=== PATIENT | male | born 1965 | race American Indian/Alaskan Native ===

== ENCOUNTER → 2018-05-19 11:14 | Outpatient (CLI) | payer MEDICAID, OTHER, SELFPAY ==
--- NOTE | 2018-05-19 | DI.RAD.S_ITS ---
PROCEDURE: XR TOE LT MIN 2V INDICATIONS: PAIN IN LEFT GREAT TOE TECHNIQUE: 3 views of the first toe(s) acquired. COMPARISON: None. FINDINGS: Bones: No fractures or dislocations. No suspicious bony lesions. Mild degenerative disease is present at the first interphalangeal joint. Soft tissues: No suspicious soft tissue densities. IMPRESSION: Mild degenerative joint disease. Dictated by: Grecia Abdi M.D. on 05/19/2018 at 14:34 Approved by: Grecia Abdi M.D. on 05/19/2018 at 14:37
== END ==
PROVIDERS: Visit Provider Family Medicine
DX: M79.675 Pain in left toe(s) (principal); M19.072 Primary osteoarthritis, left ankle and foot
CPT/HCPCS: 73660

== ENCOUNTER 2018-05-22 18:42 | Emergency (ER) | payer MEDICAID, OTHER, SELFPAY ==
[2018-05-22 18:52] VITALS: BP 140/86; PULSE 110; RESP 14; TEMP 36.9; O2SAT 97; BMI 31.4
--- NOTE | 2018-05-22 20:06 | DI.RAD.S_ITS ---
PROCEDURE: XR FOOT LT MIN 3V INDICATIONS: pain status post trauma TECHNIQUE: 3 views of the foot were acquired. COMPARISON: [facility], CR, XR ANKLE LT MIN 3V, 05/22/2018, 20:09. FINDINGS: Bones: No fractures or dislocations. No suspicious bony lesions. Soft tissues: No tibiotalar joint effusion. Achilles tendon appears normal. IMPRESSION: 1. No fracture or dislocation. Dictated by: Raleigh Burroughs M.D. on 05/22/2018 at 20:36 Approved by: Raleigh Burroughs M.D. on 05/22/2018 at 20:37
--- NOTE | 2018-05-22 20:06 | DI.RAD.S_ITS ---
PROCEDURE: XR ANKLE LT MIN 3V INDICATIONS: pain lateral, dec rom TECHNIQUE: 3 views of the ankle were acquired. COMPARISON: [facility], CR, XR FOOT LT MIN 3V, 05/22/2018, 20:05. FINDINGS: Bones: No acute fractures or dislocations. Ankle mortise is normally aligned. No suspicious bony lesions. Soft tissues: No tibiotalar joint effusion. Achilles tendon appears intact. There is a small corticated ossicle inferior to the medial malleolus suggestive of a prior avulsion injury. IMPRESSION: 1. No acute fracture or dislocation. Dictated by: Raleigh Burroughs M.D. on 05/22/2018 at 20:38 Approved by: Raleigh Burroughs M.D. on 05/22/2018 at 20:39
[2018-05-22] MEDS: KETOROLAC 60 MG/2 ML VIAL IM (20:16)
[2018-05-22 21:27] VITALS: BP 110/71; PULSE 82; RESP 16; TEMP 36.2; O2SAT 96
--- NOTE | 2018-05-22 22:00 | ED.LOWEXIN ---
HPI - Extremity Injury (Lower) [facility] - Last Filed: 05/22/18 22:59> General Chief Complaint: Extremity Injury, Lower Stated Complaint: left foot/lwr leg, throbbing Time Seen by Provider: 05/22/18 19:46 Source: patient and family Mode of arrival: ambulatory Limitations: no limitations History of Present Illness HPI Narrative: Patient is a 53-year-old male nonsmoker who presents with his sister with a chief complaint of left foot and ankle pain. He was in a basketball injury last week, states he had a toe x-ray but never heard the results. He states that his pain is getting worse, decreased range of motion. He has taken occasional ibuprofen for the pain. He denies any other pain. He does complain of bruising. He has not had anything for pain since 8:00 a.m. this morning when he took ibuprofen. He states he is not exactly sure what happened during the basketball accident but he thinks he and another player kicked each other. He later felt a pop in his ankle. Related Data Previous Rx's Medication Instructions Recorded naproxen 500 mg PO BID PRN #20 tab 05/22/18 Allergies Allergy/AdvReac Type Severity Reaction Status Date / Time No Known Drug Allergies Allergy Verified 05/22/18 18:50 Review of Systems <SHERYL Brower - Last Filed: 05/22/18 22:59> Review of Systems GENERAL: Denies chills, fatigue, malaise, fever, sweats. HEENT: Denies sinus pain, ear pain, sore throat, difficulty swallowing, dizziness. RESPIRATORY: Denies dyspnea, cough, wheezing, hemoptysis, sputum. CARDIOVASCULAR: Denies chest pain, palpitations, orthopnea, edema, GASTROINTESTINAL: Denies nausea, vomiting, abdominal pain, diarrhea, constipation, melena. MUSCULOSKELETAL: see HPI SKIN: see HPI NEUROLOGIC: Denies weakness, headache, numbness, change in speech, confusion, seizures, incoordination. PSYCHIATRIC: No concerning psychosocial issues. 12 point review of systems is negative except for those stated above PFSH <SHERYL Brower - Last Filed: 05/22/18 22:59> Social History Smoking Status: Never smoker Social History Smoking Status: Never smoker Exam [facility] Last Filed: 05/22/18 22:59> Narrative Exam Narrative: GENERAL: This is a well-nourished, well-developed patient, With family at bedside HEAD: Atraumatic. Normocephalic. No temporal or scalp tenderness. EYES: Pupils equal round and reactive. Extraocular motions intact. No scleral icterus. No injection or drainage. ENT: Nose without bleeding, purulent drainage or septal hematoma. Throat without erythema, tonsillar hypertrophy or exudate. Uvula midline. Airway patent. NECK: Trachea midline. No JVD or lymphadenopathy. Supple, nontender, no meningeal signs. CARDIOVASCULAR: Regular rate and rhythm RESPIRATORY: no cough. no ncreased respiratory effort. EXTREMITIES: generalized pain to palpation left foot left ankle. Decreased range of motion left ankle all fernandez. Positive pedal pulses left foot. Capillary refill less than 2 sec all toes left foot. decreased flexion and extension of right ankle. Achilles is intact. Slight swelling lateral malleolus left ankle. BACK: Nontender without deformity or crepitance. No flank tenderness. NEURO: AOx3. SKIN: ecchymosis noted over top of left foot At the base of toes. No abrasion laceration or avulsion noted. Nails are intact. Initial Vital Signs Initial Vital Signs: Vital Signs Temperature 98.5 F 05/22/18 18:52 Pulse Rate 110 H 05/22/18 18:52 Respiratory Rate 14 05/22/18 18:52 Blood Pressure 140/86 05/22/18 18:52 Pulse Oximetry 97 05/22/18 18:52 <Tony Alegria MD - Last Filed: 05/23/18 05:45> Initial Vital Signs Initial Vital Signs: Vital Signs Temperature 98.5 F 05/22/18 18:52 Pulse Rate 110 H 05/22/18 18:52 Respiratory Rate 14 05/22/18 18:52 Blood Pressure 140/86 05/22/18 18:52 Pulse Oximetry 97 05/22/18 18:52 Course <SHERYL BrowerBC - Last Filed: 05/22/18 22:59> Orders Ordered: Discontinued Medications Ketorolac Tromethamine (Toradol) 60 mg IM NOW ONE Stop: 05/22/18 20:02 Last Admin: 05/22/18 20:16 Dose: 60 mg Vital Signs - 8 hr 05/22/18 22:30 Pulse Rate 84 Respiratory Rate 16 Blood Pressure 125/86 Pulse Oximetry 97 <Tony Alegria MD - Last Filed: 05/23/18 05:45> Orders Ordered: Discontinued Medications Ketorolac Tromethamine (Toradol) 60 mg IM NOW ONE Stop: 05/22/18 20:02 Last Admin: 05/22/18 20:16 Dose: 60 mg Vital Signs - 8 hr 05/22/18 22:30 Pulse Rate 84 Respiratory Rate 16 Blood Pressure 125/86 Pulse Oximetry 97 [facility] - Extremity Injury (Lower) <PERLA Brower - Last Filed: 05/22/18 22:59> Imaging Data foot xray: Radiologist's impression: Leonardo Kohli Amari Lopez M 1965 [address] [address] XRay Report Signed Patient: Leonardo Kohli JMR#: [id number] : 1965Acct:[id number] Age/Sex: 53 / MDate of Service: 05/22/18 Loc: ED Accession Number: [id number] Procedure: XR foot LT min 3V Ordering Provider: Irina Mayers PROCEDURE: XR FOOT LT MIN 3V INDICATIONS: pain status post trauma TECHNIQUE: 3 views of the foot were acquired. COMPARISON: [facility], , XR ANKLE LT MIN 3V, 05/22/2018, 20:09. FINDINGS: Bones: No fractures or dislocations. No suspicious bony lesions. Soft tissues: No tibiotalar joint effusion. Achilles tendon appears normal. IMPRESSION: 1. No fracture or dislocation. Dictated by: Raleigh Burroughs M.D. on 05/22/2018 at 20:36 Approved by: Raleigh Burroughs M.D. on 05/22/2018 at 20:37 ankle xray : Radiologist's impression: Report states no acute fracture or dislocation. [facility] Narrative Medical decision making narrative: Patient is a 53-year-old male who presents with chief complaint of left foot and ankle pain and inability to ambulate. He states he hurt his ankle and foot last week playing basketball. X-ray illustrate no fractures. He is given Toradol in the emergency department. After the cecum stated his pain was much improved and was able to put weight on his foot. I discussed at length rest ice compression elevation, as well as the use of anti-inflammatories. I encouraged him to follow up with primary care provider if worsening or no improvement. The patient expressed gratitude has no questions or concerns upon discharge. I discussed at length Not using NSAIDs in addition to naproxen. Discharge Plan Departure Patient Disposition: Home Clinical Impression: Ankle pain Qualifiers: Chronicity: acute Laterality: left Qualified Code(s): M25.572 - Pain in left ankle and joints of left foot Foot pain Qualifiers: Laterality: left Qualified Code(s): M79.672 - Pain in left foot Discharge Date/Time: 05/22/18 22:31 Interventions: ED Discharge Assessment Last Done: 05/22/18 22:30 Instructions: How To Perform RICE (Rest, Ice, Compress, Elevate), DI for Ankle Pain, DI for Foot Pain Activity Restrictions/Additional Instructions: Your ft x-rays and ankle x-rays came back normal today. Given your pain, we have placed you in an air splint and given crutches. I am giving a prescription for prescription strength anti-inflammatories. Do not combine with ibuprofen, Aleve or other NSAIDs. Please follow up with primary care provider in a few days for recheck and further workup If needed. Please use rest ice compression elevation. Come back to emergency department for any acute concerns. Prescriptions: New naproxen 500 mg tablet 500 mg PO BID PRN (Reason: pain) Qty: 20 RF: 0 Referrals: Jamar Knapp MD [Non-Staff] - <Tony Alegria MD - Last Filed: 05/23/18 05:45> Cosign ED Attending Kadeature Attestation: I was working in the ER at the time of this patient's evaluation. I was available for verbal consult or to see the patient directly if needed. I agree with the patient's assessment and treatment plan.
--- NOTE | 2018-05-22 22:18 | ED_ITS ---
HPI - Extremity Injury (Lower) <SHERYL Brower - Last Filed: 05/22/18 22:59> General Chief Complaint: Extremity Injury, Lower Stated Complaint: left foot/lwr leg, throbbing Time Seen by Provider: 05/22/18 19:46 Source: patient and family Mode of arrival: ambulatory Limitations: no limitations History of Present Illness HPI Narrative: Patient is a 53-year-old male nonsmoker who presents with his sister with a chief complaint of left foot and ankle pain. He was in a basketball injury last week, states he had a toe x-ray but never heard the results. He states that his pain is getting worse, decreased range of motion. He has taken occasional ibuprofen for the pain. He denies any other pain. He does complain of bruising. He has not had anything for pain since 8:00 a.m. t his morning when he took ibuprofen. He states he is not exactly sure what happened during the basketball accident but he thinks he and another player kicked each other. He later felt a pop in his ankle. Related Data Previous Rx's Medication Instructions Recorded naproxen 500 mg PO BID PRN #20 tab 05/22/18 Allergies Allergy/AdvReac Type Severity Reaction Status Date / Time No Known Drug Allergies Allergy Verified 05/22/18 18:50 Review of Systems <SHERYL Brower - Last Filed: 05/22/18 22:59> Review of Systems GENERAL: Denies chills, fatigue, malaise, fever, sweats. HEENT: Denies sinus pain, ear pain, sore throat, difficulty swallowing, dizziness. RESPIRATORY: Denies dyspnea, cough, wheezing, hemoptysis, sputum. CARDIOVASCULAR: Denies chest pain, palpitations, orthopnea, edema, GASTROINTESTINAL: Denies nausea, vomiting, abdominal pain, diarrhea, constipation, melena. MUSCULOSKELETAL: see HPI SKIN: see HPI NEUROLOGIC: Denies weakness, headache, numbness, change in speech, confusion, seizures, incoordination. PSYCHIATRIC: No concerning psychosocial issues. 12 point review of systems is negative except for those stated above PFSH <SHERYL Brower - Last Filed: 05/22/18 22:59> Social History Smoking Status: Never smoker Social History Smoking Status: Never smoker [facility] Last Filed: 05/22/18 22:59> Narrative Exam Narrative: GENERAL: This is a well-nourished, well-developed patient, With family at bedside HEAD: Atraumatic. Normocephalic. No temporal or scalp tenderness. EYES: Pupils equal round and reactive. Extraocular motions intact. No scleral icterus. No injection or drainage. ENT: Nose without bleeding, purulent drainage or septal hematoma. Throat without erythema, tonsillar hypertrophy or exudate. Uvula midline. Airway patent. NECK: Trachea midline. No JVD or lymphadenopathy. Supple, nontender, no meningeal signs. CARDIOVASCULAR: Regular rate and rhythm RESPIRATORY: no cough. no ncreased respiratory effort. EXTREMITIES: generalized pain to palpation left foot left ankle. Decreased range of motion left ankle all fernandez. Positive pedal pulses left foot. Capillary refill less than 2 sec all toes left foot. decreased flexion and extension of right ankle. Achilles is intact. Slight swelling lateral malleolus left ankle. BACK: Nontender without deformity or crepitance. No flank tenderness. NEURO: AOx3. SKIN: ecchymosis noted over top of left foot At the base of toes. No abrasion laceration or avulsion noted. Nails are intact. Initial Vital Signs Initial Vital Signs: Vital Signs Temperature 98.5 F 05/22/18 18:52 Pulse Rate 110 H 05/22/18 18:52 Respiratory Rate 14 05/22/18 18:52 Blood Pressure 140/86 05/22/18 18:52 Pulse Oximetry 97 05/22/18 18:52 <Tony Alegria MD - Last Filed: 05/23/18 05:45> Initial Vital Signs Initial Vital Signs: Vital Signs Temperature 98.5 F 05/22/18 18:52 Pulse Rate 110 H 05/22/18 18:52 Respiratory Rate 14 05/22/18 18:52 Blood Pressure 140/86 05/22/18 18:52 Pulse Oximetry 97 05/22/18 18:52 Course <CORNELIO Brower-BC - Last Filed: 05/22/18 22:59> Orders Ordered: Discontinued Medications Ketorolac Tromethamine (Toradol) 60 mg IM NOW ONE Stop: 05/22/18 20:02 Last Admin: 05/22/18 20:16 Dose: 60 mg Vital Signs - 8 hr 05/22/18 22:30 Pulse Rate 84 Respiratory Rate 16 Blood Pressure 125/86 Pulse Oximetry 97 <Tony Alegria MD - Last Filed: 05/23/18 05:45> Orders Ordered: Discontinued Medications Ketorolac Tromethamine (Toradol) 60 mg IM NOW ONE Stop: 05/22/18 20:02 Last Admin: 05/22/18 20:16 Dose: 60 mg Vital Signs - 8 hr 05/22/18 22:30 Pulse Rate 84 Respiratory Rate 16 Blood Pressure 125/86 Pulse Oximetry 97 [facility] - Extremity Injury (Lower) <PERLA Brower - Last Filed: 05/22/18 22:59> Imaging Data foot xray: Radiologist's impression: Leonardo Kohli Amari Lopez M [address] [address] XRay Report Signed Patient: Leonardo Kohli JMR#: [id number] : 1965Acct:[id number] Age/Sex: 53 / MDate of Service: 05/22/18 Loc: ED Accession Number: [id number] Procedure: XR foot LT min 3V Ordering Provider: Irina Mayers PROCEDURE: XR FOOT LT MIN 3V INDICATIONS: pain status post trauma TECHNIQUE: 3 views of the foot were acquired. COMPARISON: [facility], , XR ANKLE LT MIN 3V, 05/22/2018, 20:09. FINDINGS: Bones: No fractures or dislocations. No suspicious bony lesions. Soft tissues: No tibiotalar joint effusion. Achilles tendon appears normal. IMPRESSION: 1. No fracture or dislocation. Dictated by: Raleigh Burroughs M.D. on 05/22/2018 at 20:36 Approved by: Raleigh Burroughs M.D. on 05/22/2018 at 20:37 ankle xray : Radiologist's impression: Report states no acute fracture or dislocation. [facility] Narrative Medical decision making narrative: Patient is a 53-year-old male who presents with chief complaint of left foot and ankle pain and inability to ambulate. He states he hurt his ankle and foot last week playing basketball. X-ray illustrate no fractures. He is given Toradol in the emergency department. After the cecum stated his pain was much improved and was able to put weight on his foot. I discussed at length rest ice compression elevation, as well as the use of anti-inflammatories. I encouraged him to follow up with primary care provider if worsening or no improvement. The patient expressed gratitude has no questions or concerns upon discharge. I discussed at length Not using NSAIDs in addition to naproxen. Discharge Plan Departure Patient Disposition: Home Clinical Impression: Ankle pain Qualifiers: Chronicity: acute Laterality: left Qualified Code(s): M25.572 - Pain in left ankle and joints of left foot Foot pain Qualifiers: Laterality: left Qualified Code(s): M79.672 - Pain in left foot Discharge Date/Time: 05/22/18 22:31 Interventions: ED Discharge Assessment Last Done: 05/22/18 22:30 Instructions: How To Perform RICE (Rest, Ice, Compress, Elevate), DI for Ankle Pain, DI for Foot Pain Activity Restrictions/Additional Instructions: Your ft x-rays and ankle x-rays came back normal today. Given your pain, we have placed you in an air splint and given crutches. I am giving a prescription for prescription strength anti-inflammatories. Do not combine with ibuprofen, Aleve or other NSAIDs. Please follow up with primary care provider in a few days for recheck and further workup If needed. Please use rest ice compression elevation. Come back to emergency department for any acute concerns. Prescriptions: New naproxen 500 mg tablet 500 mg PO BID PRN (Reason: pain) Qty: 20 RF: 0 Referrals: Jamar Knapp MD [Non-Staff] - <Tony Alegria MD - Last Filed: 05/23/18 05:45> Cosign ED Attending Kadeature Attestation: I was working in the ER at the time of this patient's evaluation. I was available for verbal consult or to see the patient directly if needed. I agree with the patient's assessment and treatment plan.
[2018-05-22 22:30] VITALS: BP 125/86; PULSE 84; RESP 16; O2SAT 97
== END 2018-05-22 22:31 | disposition home or self-care (01) ==
PROVIDERS: Emergency Provider Nurse Practitioner Family
DX: M25.572 Pain in left ankle and joints of left foot (principal); M79.672 Pain in left foot; Y93.67 Activity, basketball
CPT/HCPCS: 29540; 73610; 73630; 96372; 99282; 99283; J1885

== ENCOUNTER 2018-07-22 09:12 | Emergency (ER) | payer MEDICAID, OTHER, SELFPAY ==
[2018-07-22 09:25] VITALS: BP 138/94; PULSE 117; RESP 12; TEMP 36.6; O2SAT 97
--- NOTE | 2018-07-22 09:37 | ED.ABDPAIN ---
HPI - Abdominal Pain General Chief Complaint: Abdominal Pain Stated Complaint: feels flu x4 days Time Seen by Provider: 07/22/18 09:27 Source: patient, family () and other (PCP, Dr. Ramos) Mode of arrival: ambulatory Limitations: no limitations History of Present Illness HPI narrative: This is a 53-year-old male who is sent from his primary care office by Dr. Otto. Patient comes in with 4 day history of nausea with no vomiting, diarrhea that is been almost hourly at times. Patient states that any time he tries to eat or drink anything he will feel nauseated but he has not been vomiting. He has not been eating or drinking very much at all. Abdominal pain just started today. He states in the lower abdomen on both sides. He has been having diarrhea gets regularly for about 4 days. He has not had any fevers that he is aware of. He has not had any black or bloody stools that he is aware of. He has only been having very small amounts of urine output. Patient states he does not feel like he needs to urinate. He has not had similar symptoms in the past except when he had his gallbladder out. He has had a cholecystectomy as well as appendectomy and tonsillectomy. He is not taking any medications but per his physician has some hypertension and dyslipidemia as well as some hearing loss. Per his physician he also had mild transaminase elevations and had a negative hepatitis C in 2017. She was concerned as his pressure was normal but he was tachycardic in the office. They did do EKG and shy Q 3 as well as possibly some ST depression V2 3. Patient denies any chest pain, shortness of breath. he has not had any sick contacts. Patient drinks about 12 beers weekly denies any illicit Related Data Previous Rx's Medication Instructions Recorded nitazoxanide 500 mg PO BID 3 Days #6 tab 07/22/18 ondansetron HCl [Zofran] 4 mg PO Q6-8H PRN #7 tab 07/22/18 tramadol [Ultram] 50 mg PO BEDTIME #7 tab 07/22/18 Allergies Allergy/AdvReac Type Severity Reaction Status Date / Time No Known Drug Allergies Allergy Verified 05/22/18 18:50 Review of Systems Review of Systems ROS Unobtainable: All systems reviewed & are unremarkable except as noted in HPI and below Constitutional Denies chills, Denies fever(s), Denies lethargy and Denies weakness ENT Ears, Nose, Mouth, and Throat: Reports dry mouth and Denies nasal congestion Cardiovascular Denies chest pain, Denies syncope, Denies edema, Denies lightheadedness and Denies dyspnea Respiratory Denies chest congestion, Denies cough, Denies excessive phlegm production and Denies dyspnea Gastrointestinal Gastrointestinal: Reports abdominal pain (Lower abdomen), Denies melena, Denies hematochezia, Denies change in bowel habits, Reports diarrhea, Reports nausea and Denies vomiting Genitourinary Reports as per HPI, Denies difficulty urinating, Denies urinary frequency, Denies urinary hesitancy, Denies urinary incontinence and Reports other (Decreased urine output) Musculoskeletal Reports back pain (Lower back pain) Integumentary/Breasts Denies rash Neurologic Denies syncope and Denies weakness PFSH Medical History (Updated 07/22/18 @ 14:14 by Irina Kat DO) Dyslipidemia (Chronic) Hypertension (Chronic) Surgical History (Updated 07/22/18 @ 09:41 by Irina Kat DO) History of tonsillectomy (Chronic) Hx of appendectomy (Chronic) Hx of cholecystectomy (Chronic) Social History (Updated 07/22/18 @ 09:41 by Irina Kat DO) marital status: Smoking Status: Never smoker alcohol intake: current substance use type: does not use Social History (Updated 07/22/18 @ 09:41 by Irina Kat DO) marital status: Smoking Status: Never smoker alcohol intake: current substance use type: does not use Exam Narrative Exam Narrative: GENERAL: Alert and oriented x three, well-nourished, well-appearing male in mild distress. HEENT: Head normocephalic, atraumatic, EOMI, pupils reactive, face symmetric, dry mucous membranes NECK: Supple, full range of motion CARDIOVASCULAR: Tachycardic but regular rhythm without murmurs, rubs or gallops. No JVD. No edema bilateral lower extremities. RESPIRATORY: Breath sounds equal bilaterally, no wheezes rales or rhonchi. No tachypnea or accessory muscle use. ABDOMEN: Soft, mildly tender suprapubically. Hypoactive bowel sounds all 4 quadrants. No guarding or rebound, rigidity, no mass : No CVA tenderness EXTREMITIES: Normal range of motion, no clubbing or edema. Neurovascularly intact NEUROLOGICAL: Cranial nerves II through XII grossly intact. Moving all extremities SKIN: Warm, dry, no petechiae, no rashes or lesions. Initial Vital Signs Initial Vital Signs: Vital Signs Temperature 97.8 F 07/22/18 09:25 Pulse Rate 117 H 07/22/18 09:25 Respiratory Rate 12 07/22/18 09:25 Blood Pressure 138/94 H 07/22/18 09:25 Pulse Oximetry 97 07/22/18 09:25 Course Orders Ordered: ED Orders 07/22/18 12:13 Urine Microscopic Stat Discontinued Medications Sodium Chloride (Normal Saline 0.9%) 3,007.32 mls @ 1,002.44 mls/hr 30 ml/kg infuse over 3 hr (3007.32 ml) IV NOW ONE Stop: 07/22/18 13:00 Last Infusion: 07/22/18 14:03 Dose: 0 mls/hr Admin: 07/22/18 10:10 Dose: 1,002.44 mls/hr Ondansetron HCl (Zofran) 4 mg IV NOW ONE Stop: 07/22/18 09:44 Last Admin: 07/22/18 10:01 Dose: 4 mg Vital Signs - 8 hr 07/22/18 12:30 07/22/18 13:01 Pulse Rate 109 H 100 H Respiratory Rate 10 L 15 Blood Pressure [Right Arm] 136/87 146/90 H Pulse Oximetry 99 99 MDM - Abdominal Pain Lab Data Attestation: I reviewed the patient's lab results. Result diagrams: 07/22/18 09:40 07/22/18 09:40 Lab Results 07/22/18 07/22/18 07/22/18 Range/Units 09:40 09:40 09:40 WBC 9.5 (4.5-11.0) X10^3/uL RBC 5.90 (4.5-5.9) X10^6/uL Hgb 19.1 H (13.5-17.5) g/dL Hct 55.4 H (41-53) % MCV 94.0 (80-100) fL MCH 32.5 (26-34) PG MCHC 34.5 (30-36) % RDW 13.4 (11.6-14.8) % Plt Count 328 (150-400) X10^3/uL Neut % (Auto) 70.9 (50-75) % Lymph % (Auto) 14.1 L (25-40) % [place] % (Auto) 12.1 (3-14) % Eos % (Auto) 2.4 (2-4) % Baso % (Auto) 0.5 (0-2) % Neut # (Auto) 6700 (0930-6246) /uL Lymph # (Auto) 1300 (5241-4282) /uL [place] # (Auto) 1100 H (0-900) /uL Eos # (Auto) 200 (0-450) /uL Baso # (Auto) 0 (0-100) /uL Plt Morphology Comment . RBC Morphology Normal morphology Sodium 138 (137-145) mmol/L Potassium 3.6 (3.4-5.1) mmol/L Chloride 107 (98-107) mmol/L Carbon Dioxide 17 L (22-32) mmol/L BUN 23 H (9-20) mg/dL Creatinine 1.20 (0.66-1.25) mg/dL Estimated GFR > 60.0 (>60) mL/min BUN/Creatinine Ratio 19.2 (6-22) Glucose 121 H (70-100) mg/dL Lactate 0.9 (0.7-2.1) mmol/L Calcium 8.9 (8.4-10.2) mg/dL Total Bilirubin 0.8 (0.2-1.3) mg/dL AST 65 H (17-59) IU/L ALT 87 H (21-72) IU/L Alkaline Phosphatase 95 (38-126) U/L Total Protein 8.0 (6.3-8.2) g/dL Albumin 4.6 (3.5-5.0) g/dL Globulin 3.4 (1.7-4.1) g/dL Albumin/Globulin Ratio 1.4 (1.0-2.8) Lipase 273 (23-300) U/L Urine Color Urine Appearance Urine pH Ur Specific [place] Urine Protein Urine Glucose (UA) Urine Ketones Urine Occult Blood Urine Nitrate Urine Bilirubin Urine Urobilinogen Ur Leukocyte Esterase Urine RBC (0-5/HPF) Urine WBC (0-5/HPF) Urine Bacteria (None) Ur Culture Indicated? Stl C. cayetanensis PCR (Not Detect) Stool Rotavirus (PCR) (Not Detect) Stool Adenovirus (PCR) (Not Detect) Stool Astrovirus (PCR) (Not Detect) Stool Cryptosporidium PCR (Not Detect) Stl E.coli Shiga Tox PCR (Not Detect) St Sh/Enteroin Ecoli PCR (Not Detect) Stool E coli O157 PCR Stl Enterotoxigenic E PCR (Not Detect) Stool EPEC (PCR) (Not Detect) Stl E. histolytica PCR (Not Detect) Stool Giardia Lamblia PCR (Not Detect) Stool Sapovirus (PCR) (Not Detect) Stl P. shigelloides PCR (Not Detect) St Y.enterocolitica PCR (Not Detect) Stool Vibrio (PCR) (Not Detect) Stl Vibrio cholerae PCR (Not Detect) Stl Enteroaggr Ecoli PCR (Not Detect) Stl Norovirus GI/GII PCR (Not Detect) Campylobacter (PCR) (Not Detect) C. difficile Tox (PCR) (Not Detect) Salmonella (PCR) (Not Detect) 07/22/18 07/22/18 Range/Units 11:08 12:13 WBC (4.5-11.0) X10^3/uL RBC (4.5-5.9) X10^6/uL Hgb (13.5-17.5) g/dL Hct (41-53) % MCV (80-100) fL MCH (26-34) PG MCHC (30-36) % RDW (11.6-14.8) % Plt Count (150-400) X10^3/uL Neut % (Auto) (50-75) % Lymph % (Auto) (25-40) % [place] % (Auto) (3-14) % Eos % (Auto) (2-4) % Baso % (Auto) (0-2) % Neut # (Auto) (7991-5025) /uL Lymph # (Auto) (5622-4364) /uL [place] # (Auto) (0-900) /uL Eos # (Auto) (0-450) /uL Baso # (Auto) (0-100) /uL Plt Morphology Comment RBC Morphology Sodium (137-145) mmol/L Potassium (3.4-5.1) mmol/L Chloride (98-107) mmol/L Carbon Dioxide (22-32) mmol/L BUN (9-20) mg/dL Creatinine (0.66-1.25) mg/dL Estimated GFR (>60) mL/min BUN/Creatinine Ratio (6-22) Glucose (70-100) mg/dL Lactate (0.7-2.1) mmol/L Calcium (8.4-10.2) mg/dL Total Bilirubin (0.2-1.3) mg/dL AST (17-59) IU/L ALT (21-72) IU/L Alkaline Phosphatase (38-126) U/L Total Protein (6.3-8.2) g/dL Albumin (3.5-5.0) g/dL Globulin (1.7-4.1) g/dL Albumin/Globulin Ratio (1.0-2.8) Lipase (23-300) U/L Urine Color Cancelled Urine Appearance Cancelled Urine pH Cancelled Ur Specific [place] Cancelled Urine Protein Cancelled Urine Glucose (UA) Cancelled Urine Ketones Cancelled Urine Occult Blood Cancelled Urine Nitrate Cancelled Urine Bilirubin Cancelled Urine Urobilinogen Cancelled Ur Leukocyte Esterase Cancelled Urine RBC None seen (0-5/HPF) Urine WBC 0-1/hpf (0-5/HPF) Urine Bacteria Occasional (0-1) (None) Ur Culture Indicated? Cult not indicated Stl C. cayetanensis PCR Not detected (Not Detect) Stool Rotavirus (PCR) Not detected (Not Detect) Stool Adenovirus (PCR) Not detected (Not Detect) Stool Astrovirus (PCR) Not detected (Not Detect) Stool Cryptosporidium PCR Detected H (Not Detect) Stl E.coli Shiga Tox PCR Not detected (Not Detect) St Sh/Enteroin Ecoli PCR Not detected (Not Detect) Stool E coli O157 PCR TNP Stl Enterotoxigenic E PCR Not detected (Not Detect) Stool EPEC (PCR) Not detected (Not Detect) Stl E. histolytica PCR Not detected (Not Detect) Stool Giardia Lamblia PCR Not detected (Not Detect) Stool Sapovirus (PCR) Not detected (Not Detect) Stl P. shigelloides PCR Not detected (Not Detect) St Y.enterocolitica PCR Not detected (Not Detect) Stool Vibrio (PCR) Not detected (Not Detect) Stl Vibrio cholerae PCR Not detected (Not Detect) Stl Enteroaggr Ecoli PCR Not detected (Not Detect) Stl Norovirus GI/GII PCR Not detected (Not Detect) Campylobacter (PCR) Not detected (Not Detect) C. difficile Tox (PCR) Not detected (Not Detect) Salmonella (PCR) Not detected (Not Detect) Point of care testing: Urine Dip Bedside Urine Glucose Negative Bedside Urine Bilirubin - Negative Bedside Urine Ketone - Negative Urine Specific [place] 1.005 Bedside Urine Occult Blood - Negative Bedside Urine pH 5.5 Bedside Urine Protein + 30 Bedside Urine Urobilinogen - Negative Bedside Urine Nitrite - Negative Bedside Urine Leukocytes - Negative Esterase Imaging Data CT scan - abdomen: Radiologist's impression: 64 Irina Kat, DO Find Patient Imaging Leonardo Kohli 53 M 1965 ACTIVITY DATE EXAM STATUS AUTHOR 07/22/18 10:12 [place] [address] CT Scan Report Signed Patient: Leonardo Kohli R#: [id number] : 1965Acct:[id number] Age/Sex: 53 / MDate of Service: 07/22/18 Loc: ED Accession Number: [id number] Procedure: CT abdomen pelvis w con Ordering Provider: Irina Kat D.O. PROCEDURE: CT ABDOMEN PELVIS W CON INDICATIONS: diarrhea x 4 days, decreased urine output, lower abd pain TECHNIQUE: After the administration of intravenous contrast, 5 mm thick sections acquired from the diaphragm to the symphysis. 5 mm coronal and sagittal reformats were acquired. For radiation dose reduction, the following was used: automated exposure control, adjustment of mA and/or kV according to patient size. COMPARISON: None. FINDINGS: Image quality: Excellent. ABDOMEN: Lung bases: Lung bases are clear. Heart size is normal. Solid organs: Liver is normal in size and enhancement. Gallbladder has been previously resected. Biliary system is non dilated. Pancreas enhances normally. Spleen is normal in size and enhancement. No adrenal nodules. Kidneys demonstrate normal size and enhancement, without hydronephrosis. Peritoneum and bowel: Bowel loops demonstrate normal wall thickness and caliber. No free fluid or air. Nodes and vessels: No retroperitoneal or mesenteric adenopathy by size criteria. Aorta and inferior vena cava are normal in size. Miscellaneous: No ventral hernias. PELVIS: Genitourinary: Bladder wall thickness is normal. Miscellaneous: No inguinal hernias or adenopathy. A normal or abnormal appendix is not seen but the patient did report to the technologist that the appendix has been removed. Bones: No suspicious bony lesions. No vertebral body compression fractures. IMPRESSION: Source of persistent diarrhea and abdominal pain is not seen. The patient appears free of colitis. Prior cholecystectomy and reported prior appendectomy. Dictated by: Erlin Mills M.D. on 07/22/2018 at 11:35 Approved by: Erlin Mills M.D. on 07/22/2018 at 11:36 ECG Data Attestation: I personally reviewed and interpreted this ECG as follows: Interpretation: Sinus tachycardia with a rate of 119, MS interval 136 QRS 81 and QTC of 3 4. Patient does have a Q-wave in lead 3, possibly some mild ST depression in V4 through 6. MDM Narrative Medical decision making narrative: Patient did received a 30 cc/kilos bolus over 3 hours which was almost 3 entire L. Patient's heart rate did improve. His lab work is surprisingly normal except for his stool which shows Cryptosporidium. Her lab they ran it 3 times and it was positive each time. Spoke with patient he is feeling a little bit better he is able to eat and drink has just been choosing not to because he felt nauseated. We discussed doing some Zofran orally hydrating at home, doing some medication for pain in the evening when he feels most uncomfortable and starting medication for the diarrhea. Discussed that he does need some follow-up this is not a common cause of infection and he may need some additional testing from his physician to evaluate for why he developed this. Patient is comfortable with this plan we did discuss that if he feels worse over the weekend he should immediately return. Patient and I discussed at length and him and his were comfortable with this plan. Discharge Plan Departure Patient Disposition: Home Clinical Impression: Cryptosporidial gastroenteritis Discharge Date/Time: 07/22/18 14:32 Interventions: ED Discharge Assessment Last Done: 07/22/18 14:32 Instructions: Cryptosporidiosis Activity Restrictions/Additional Instructions: Follow-up with your primary care physician on Wednesday for recheck, to make sure her symptoms are improving and any additional testing as needed. Take medication as prescribed until gone. Diarrhea often takes up to 5 days to resolve with treatment in 80% of cases. Take Zofran 1 tablet every 6 hours under the tongue as needed for nausea. Take pain medication as prescribed this medication can make you sleepy do not drive, perform has activities or make any major decisions while taking it. Make sure to drink plenty of fluids to help you stay hydrated. Return to the emergency department for persistent fevers, worsening symptoms, black or bloody stools, inability eat or drink anything, persistent vomiting, decreasing urine output, passing out, chest pain, no abdominal pain or other new or concerning symptoms. Prescriptions: New nitazoxanide 500 mg tablet 500 mg PO BID 3 Days Qty: 6 RF: 0 ondansetron HCl [Zofran] 4 mg tablet 4 mg PO Q6-8H PRN (Reason: nausea and vomiting) Qty: 7 RF: 0 tramadol [Ultram] 50 mg tablet 50 mg PO BEDTIME Qty: 7 RF: 0 Referrals: Suyapa Ramos MD [Non-Staff] -
[2018-07-22 09:56] LABS: Basophils Absolute Auto 0 /uL (0-100); Basophils Percent Auto 0.5 % (0-2); Eosinophils Absolute Auto 200 /uL (0-450); Eosinophils Percent Auto 2.4 % (2-4); Hematocrit 55.4 % (41-53); Hemoglobin 19.1 g/dL (13.5-17.5); Lymphocytes Absolute Auto 1300 /uL (1100-4500); Lymphocytes Percent Auto 14.1 % (25-40); Mean Corpuscular HGB Conc 34.5 % (30-36); Mean Corpuscular Hemoglobin 32.5 PG (26-34); Monocytes Absolute Auto 1100 /uL (0-900); Monocytes Percent Auto 12.1 % (3-14); Neutrophils Absolute Auto 6700 /uL (1500-7000); Neutrophils Percent Auto 70.9 % (50-75); Platelet Count 328 X10^3/uL (150-400); Red Cell Distribution Width 13.4 % (11.6-14.8); White Blood Cell Count 9.5 X10^3/uL (4.5-11.0)
[2018-07-22] MEDS: ONDANSETRON 4 MG/2 ML INJ IV (10:01)
[2018-07-22 10:02] LABS: Alanine Aminotransferase 87 IU/L (21-72); Albumin 4.6 g/dL (3.5-5.0); Albumin Globulin Ratio 1.4 (1.0-2.8); Alkaline Phosphatase 95 U/L (38-126); Aspartate Aminotransferase 65 IU/L (17-59); BUN Creatinine Ratio 19.2 (6-22); Bilirubin Total 0.8 mg/dL (0.2-1.3); Blood Urea Nitrogen 23 mg/dL (9-20); Calcium 8.9 mg/dL (8.4-10.2); Carbon Dioxide 17 mmol/L (22-32); Chloride 107 mmol/L (98-107); Estimated Glomerular Filt Rate > 60.0 mL/min (>60); Globulin 3.4 g/dL (1.7-4.1); Glucose 121 mg/dL (70-100); HEMOLYSIS 16 (0-50); Lactate (Lactic Acid) 0.9 mmol/L (0.7-2.1); Lipase 273 U/L (23-300); Potassium 3.6 mmol/L (3.4-5.1); Sodium 138 mmol/L (137-145)
[2018-07-22 10:05] LABS: Add Manual Diff / Slide Review SLIDE REVIEW
[2018-07-22] MEDS: SODIUM CHLORIDE 0.9% 1002.44 ML IV (10:10)
--- NOTE | 2018-07-22 10:12 | DI.CT.S_ITS ---
PROCEDURE: CT ABDOMEN PELVIS W CON INDICATIONS: diarrhea x 4 days, decreased urine output, lower abd pain TECHNIQUE: After the administration of intravenous contrast, 5 mm thick sections acquired from the diaphragm to the symphysis. 5 mm coronal and sagittal reformats were acquired. For radiation dose reduction, the following was used: automated exposure control, adjustment of mA and/or kV according to patient size. COMPARISON: None. FINDINGS: Image quality: Excellent. ABDOMEN: Lung bases: Lung bases are clear. Heart size is normal. Solid organs: Liver is normal in size and enhancement. Gallbladder has been previously resected. Biliary system is non dilated. Pancreas enhances normally. Spleen is normal in size and enhancement. No adrenal nodules. Kidneys demonstrate normal size and enhancement, without hydronephrosis. Peritoneum and bowel: Bowel loops demonstrate normal wall thickness and caliber. No free fluid or air. Nodes and vessels: No retroperitoneal or mesenteric adenopathy by size criteria. Aorta and inferior vena cava are normal in size. Miscellaneous: No ventral hernias. PELVIS: Genitourinary: Bladder wall thickness is normal. Miscellaneous: No inguinal hernias or adenopathy. A normal or abnormal appendix is not seen but the patient did report to the technologist that the appendix has been removed. Bones: No suspicious bony lesions. No vertebral body compression fractures. IMPRESSION: Source of persistent diarrhea and abdominal pain is not seen. The patient appears free of colitis. Prior cholecystectomy and reported prior appendectomy. Dictated by: Erlin Mills M.D. on 07/22/2018 at 11:35 Approved by: Erlin Mills M.D. on 07/22/2018 at 11:36
[2018-07-22 10:48] LABS: RBC Morphology Normal Morphology
[2018-07-22 11:17] VITALS: BP 129/80; PULSE 111; RESP 9; O2SAT 99
--- NOTE | 2018-07-22 11:18 | PC.NURSE ---
Patient up to restroom unable to urinate provided liquid diarrhea sample. Foul smelling and green. Provider aware and GI Panal ordered
[2018-07-22 11:30] VITALS: BP 123/75; PULSE 109; RESP 17; O2SAT 97
[2018-07-22 12:00] VITALS: BP 122/91; PULSE 108; RESP 14; O2SAT 96
[2018-07-22 12:14] LABS: RBC Urine None Seen (0-5/HPF)
[2018-07-22 12:27] LABS: Bacteria Urine Occasional (0-1); Culture Indicated Urine Cult Not Indicated; WBC Urine 0-1/HPF (0-5/HPF)
[2018-07-22 12:30] VITALS: BP 136/87; PULSE 109; RESP 10; O2SAT 99
[2018-07-22 13:01] VITALS: BP 146/90; PULSE 100; RESP 15; O2SAT 99
[2018-07-22 13:47] LABS: Adenovirus F 40/41 Not Detected (Not Detect); Astrovirus Not Detected (Not Detect); Campylobacter Not Detected (Not Detect); Clostridium difficile toxin AB Not Detected (Not Detect); Cryptosporidium Detected (Not Detect); Cyclospora cayetanensis Not Detected (Not Detect); Entamoeba histolytica Not Detected (Not Detect); Enteroaggregative E.coli Not Detected (Not Detect); Enteropathogenic E.coli Not Detected (Not Detect); Enterotoxigenic E.coli It/st Not Detected (Not Detect); Giardia lamblia Not Detected (Not Detect); Norovirus GI/GII Not Detected (Not Detect); Plesiomonsa shigelloides Not Detected (Not Detect); Rotavirus A Not Detected (Not Detect); Salmonella Not Detected (Not Detect); Sapovirus Not Detected (Not Detect); Shiga-like toxin-prod E.coli Not Detected (Not Detect); Shigella/Enteroinvasive E.coli Not Detected (Not Detect); Vibrio Not Detected (Not Detect); Vibrio cholerae Not Detected (Not Detect); Yersinia enterocolitica Not Detected (Not Detect)
== END 2018-07-22 14:32 | disposition home or self-care (01) ==
PROVIDERS: Emergency Provider Emergency Medicine
DX: A07.2 Cryptosporidiosis (principal); R11.0 Nausea; R19.7 Diarrhea, unspecified; R00.0 Tachycardia, unspecified
CPT/HCPCS: 36415; 36591; 51798; 74177; 80053; 81003; 81015; 83605; 83690; 85025; 87040; 87507; 93005; 93010; 96361; 96374; 99285; J2405; Q9967

== ENCOUNTER 2018-07-31 13:04 | Emergency (ER) | payer MEDICAID, OTHER, SELFPAY ==
[2018-07-31 13:31] VITALS: BP 130/78; PULSE 104; RESP 16; TEMP 36.9; O2SAT 99; BMI 29.9
--- NOTE | 2018-07-31 14:48 | ED_ITS ---
HPI - Abdominal Pain <MARCUS Parks - Last Filed: 07/31/18 16:12> General Chief Complaint: Abdominal Pain Stated Complaint: Abd pain Time Seen by Provider: 07/31/18 14:04 Source: patient and family (spouse) Mode of arrival: ambulatory Limitations: no limitations History of Present Illness HPI narrative: pt says he still having abd pain, says he was txed here about 10 days ago, for abd and diarrhea, got all the rx except the one for the parasites and he just got that yesterday and just started taking it, no more diarrhea, last bm was today, normal bm but he continues to have the abd pain, no f/u since txed here, the pain started about 2 weeks ago and it comes and goes MD complaint: abdominal pain Onset (ago): week(s) Pain Consistency: intermittent Location: suprapubic Severity: similar to previous episodes Quality: cramping Radiation: none Migration to: no migration Relieving factors: nothing Exacerbating factors: nothing Associated symptoms: denies other symptoms Related Data Previous Rx's Medication Instructions Recorded ondansetron HCl [Zofran] 4 mg PO Q6-8H PRN #7 tab 07/22/18 tramadol [Ultram] 50 mg PO BEDTIME #7 tab 07/22/18 metronidazole [Flagyl] 500 mg PO QID 7 Days #28 tab 07/31/18 ondansetron 4 mg PO Q8-12H PRN #14 tab 07/31/18 tramadol [Ultram] 50 mg PO Q6H PRN #20 tab 07/31/18 Allergies Allergy/AdvReac Type Severity Reaction Status Date / Time No Known Drug Allergies Allergy Verified 05/22/18 18:50 Review of Systems <MARCUS Parks - Last Filed: 07/31/18 16:12> Constitutional Reports as per HPI and Reports system reviewed and no additional complaints, except as docu Cardiovascular Denies chest pain and Denies dyspnea Respiratory Denies dyspnea Gastrointestinal Gastrointestinal: Reports as per HPI, Reports abdominal pain, Denies melena, Denies hematochezia, Denies constipation, Denies diarrhea, Denies nausea and Denies vomiting Genitourinary Denies dysuria Musculoskeletal Denies back pain PFSH <MARCUS Parks - Last Filed: 07/31/18 16:12> Medical History Dyslipidemia (Chronic) Hypertension (Chronic) Surgical History History of tonsillectomy (Chronic) Hx of appendectomy (Chronic) Hx of cholecystectomy (Chronic) Social History (Updated 07/22/18 @ 09:41 by Irina Kat DO) marital status: Smoking Status: Never smoker alcohol intake: current substance use type: does not use Social History marital status: Smoking Status: Never smoker alcohol intake: current substance use type: does not use Exam <MARCUS Parks - Last Filed: 07/31/18 16:12> Initial Vital Signs Initial Vital Signs: Vital Signs Temperature 98.4 F 07/31/18 13:31 Pulse Rate 104 H 07/31/18 13:31 Respiratory Rate 16 07/31/18 13:31 Blood Pressure 130/78 07/31/18 13:31 Pulse Oximetry 99 07/31/18 13:31 Const General: cooperative, healthy appearing, comfortable and well developed Nutritional Appearance: average body habitus Orientation: alert, awake and oriented x3 Resp Effort & Inspection: normal respiratory effort and able to speak in complete sentences Auscultation: clear to auscultation bilaterally Cardio Rate: regular rate Rhythm: regular rhythm Heart Sounds: S1 normal and S2 normal GI Inspection: normal to inspection Palpation: soft Auscultation: normal bowel sounds Back/Spine/Pelvis Cervical Spine: cervical ROM normal Thoracic/Lumbar Spine: thoraco-lumbar ROM limited Skin General: no rashes or lesions noted, elasticity normal, turgor normal and warm Neuro General: alert, awake and oriented x3 Cranial Nerves: CN's II-XI intact bilaterally Cognition: normal cognition Speech: speech normal Motor: muscle tone normal throughout Sensory Exam: no sensory deficits noted Psych Appearance: grossly normal and well kempt Mental Status: mental status grossly normal Speech and Movement: speech and movement normal Mood: congruent mood Affect: normal affect Attitude: cooperative Thought Process: normal Thought Content: normal Judgment: judgment good <Adia Lind DO - Last Filed: 08/01/18 10:47> Initial Vital Signs Initial Vital Signs: Vital Signs Temperature 98.4 F 07/31/18 13:31 Pulse Rate 104 H 07/31/18 13:31 Respiratory Rate 16 07/31/18 13:31 Blood Pressure 130/78 07/31/18 13:31 Pulse Oximetry 99 07/31/18 13:31 Course <MARCUS Parks - Last Filed: 07/31/18 16:12> Course Narrative: old chart reviewed from ER visit on 07/22 1510 pt updated with lab results and that CT abd was ordered 160 ct results and dc plan discussed, agreed to give some meds here prior to dc and pt will f/u with his pcp in 48 hrs Orders Ordered: Discontinued Medications Hydrocodone Bitart/Acetaminophen ([place] 5/325) 1 tab PO NOW ONE Stop: 07/31/18 16:06 Last Admin: 07/31/18 16:19 Dose: 1 tab Metronidazole (Flagyl) 500 mg in 100 mls @ 100 mls/hr IV NOW ONE Stop: 07/31/18 17:04 Last Infusion: 07/31/18 17:59 Dose: 0 mls/hr Admin: 07/31/18 16:19 Dose: 100 mls/hr Ketorolac Tromethamine (Toradol) 30 mg IV NOW ONE Stop: 07/31/18 14:22 Last Admin: 07/31/18 15:01 Dose: 30 mg Ondansetron HCl (Zofran) 4 mg IV NOW ONE Stop: 07/31/18 16:06 Last Admin: 07/31/18 16:19 Dose: 4 mg Tramadol HCl (Ultram 50mg Prepack) 1 bottle MISC SEEINSTR ONE Stop: 07/31/18 18:01 Last Admin: 07/31/18 18:04 Dose: 1 bottle Vital Signs - 8 hr 07/31/18 13:31 Temperature 98.4 F Pulse Rate 104 H Respiratory Rate 16 Blood Pressure 130/78 Pulse Oximetry 99 <Adia Lind DO - Last Filed: 08/01/18 10:47> Orders Ordered: Discontinued Medications Hydrocodone Bitart/Acetaminophen ([place] 5/325) 1 tab PO NOW ONE Stop: 07/31/18 16:06 Last Admin: 07/31/18 16:19 Dose: 1 tab Metronidazole (Flagyl) 500 mg in 100 mls @ 100 mls/hr IV NOW ONE Stop: 07/31/18 17:04 Last Infusion: 07/31/18 17:59 Dose: 0 mls/hr Admin: 07/31/18 16:19 Dose: 100 mls/hr Ketorolac Tromethamine (Toradol) 30 mg IV NOW ONE Stop: 07/31/18 14:22 Last Admin: 07/31/18 15:01 Dose: 30 mg Ondansetron HCl (Zofran) 4 mg IV NOW ONE Stop: 07/31/18 16:06 Last Admin: 07/31/18 16:19 Dose: 4 mg Tramadol HCl (Ultram 50mg Prepack) 1 bottle MISC SEEINSTR ONE Stop: 07/31/18 18:01 Last Admin: 07/31/18 18:04 Dose: 1 bottle Vital Signs - 8 hr 07/31/18 13:31 Temperature 98.4 F Pulse Rate 104 H Respiratory Rate 16 Blood Pressure 130/78 Pulse Oximetry 99 MDM - Abdominal Pain <TeriMARCUS Newton - Last Filed: 07/31/18 16:12> Differential Diagnosis Differential diagnosis: Likely abdominal pain, constipation, diverticulitis, gastroenteritis and small bowel obstruction Lab Data Attestation: I reviewed the patient's lab results. Result diagrams: 07/31/18 14:50 07/31/18 14:50 Lab Results 07/31/18 07/31/18 Range/Units 14:50 14:50 WBC 12.8 H (4.5-11.0) X10^3/uL RBC 4.95 (4.5-5.9) X10^6/uL Hgb 16.0 (13.5-17.5) g/dL Hct 45.9 (41-53) % MCV 92.7 (80-100) fL MCH 32.2 (26-34) PG MCHC 34.8 (30-36) % RDW 13.3 (11.6-14.8) % Plt Count 514 H (150-400) X10^3/uL Neut % (Auto) 67.8 (50-75) % Lymph % (Auto) 14.7 L (25-40) % [place] % (Auto) 15.1 H (3-14) % Eos % (Auto) 2.1 (2-4) % Baso % (Auto) 0.3 (0-2) % Neut # (Auto) 8700 H (3961-7341) /uL Lymph # (Auto) 1900 (6962-8443) /uL [place] # (Auto) 1900 H (0-900) /uL Eos # (Auto) 300 (0-450) /uL Baso # (Auto) 0 (0-100) /uL Sodium 134 L (137-145) mmol/L Potassium 2.9 L (3.4-5.1) mmol/L Chloride 99 (98-107) mmol/L Carbon Dioxide 24 (22-32) mmol/L BUN 15 (9-20) mg/dL Creatinine 0.90 (0.66-1.25) mg/dL Estimated GFR > 60.0 (>60) mL/min BUN/Creatinine Ratio 16.7 (6-22) Glucose 101 H (70-100) mg/dL Calcium 8.2 L (8.4-10.2) mg/dL Total Bilirubin 0.7 (0.2-1.3) mg/dL AST 31 (17-59) IU/L ALT 83 H (21-72) IU/L Alkaline Phosphatase 91 (38-126) U/L Total Protein 6.8 (6.3-8.2) g/dL Albumin 3.5 (3.5-5.0) g/dL Globulin 3.3 (1.7-4.1) g/dL Albumin/Globulin Ratio 1.1 (1.0-2.8) Imaging Data CT scan - abdomen: Radiologist's impression: PROCEDURE: CT ABDOMEN PELVIS W CON INDICATIONS: abd pain TECHNIQUE: After the administration of intravenous contrast, 5 mm thick sections acquired from the diaphragm to the symphysis. 5 mm coronal and sagittal reformats were acquired. For radiation dose reduction, the following was used: automated exposure control, adjustment of mA and/or kV according to patient size. COMPARISON: [facility], CT, CT ABDOMEN PELVIS W CON, 07/22/2018, 11:03. FINDINGS: Image quality: Excellent. ABDOMEN: Lung bases: Lung bases are clear. Heart size is normal. Solid organs: Liver is normal in size and enhancement. Gallbladder is surgically absent. Biliary system is non dilated. Pancreas enhances normally. Spleen is normal in size and enhancement. No adrenal nodules. Kidneys demonstrate normal size and enhancement, without hydronephrosis. Peritoneum and bowel: Diverticulosis of the sigmoid colon. Moderate focal thickening involving the midsigmoid colon which demonstrates mild surrounding fat stra nding. Appendix not seen. No evidence of appendicitis. Bowel loops demonstrate otherwise normal wall thickness and caliber. No free fluid or air. Nodes and vessels: No retroperitoneal or mesenteric adenopathy by size criteria. Multiple mildly prominent mesenteric lymph nodes are present. Aorta and inferior vena cava are normal in size. Miscellaneous: No ventral hernias. PELVIS: Genitourinary: Bladder wall thickness is normal. Miscellaneous: No inguinal hernias or adenopathy. Bones: No suspicious bony lesions. No vertebral body compression fractures. IMPRESSION: 1. Mild focal diverticulitis involving the sigmoid colon. No pericolonic abscess. Followup colonoscopy is recommended to ensure resolution. 2. Reactive mesenteric lymph node enlargement. Dictated by: Jada Peterson M.D. on 07/31/2018 at 15:57 Approved by: Jada Peterson M.D. on 07/31/2018 at 15:59 <Adia Lind DO - Last Filed: 08/01/18 10:47> Lab Data Lab Results 07/31/18 07/31/18 Range/Units 14:50 14:50 WBC 12.8 H (4.5-11.0) X10^3/uL RBC 4.95 (4.5-5.9) X10^6/uL Hgb 16.0 (13.5-17.5) g/dL Hct 45.9 (41-53) % MCV 92.7 (80-100) fL MCH 32.2 (26-34) PG MCHC 34.8 (30-36) % RDW 13.3 (11.6-14.8) % Plt Count 514 H (150-400) X10^3/uL Neut % (Auto) 67.8 (50-75) % Lymph % (Auto) 14.7 L (25-40) % [place] % (Auto) 15.1 H (3-14) % Eos % (Auto) 2.1 (2-4) % Baso % (Auto) 0.3 (0-2) % Neut # (Auto) 8700 H (6524-7533) /uL Lymph # (Auto) 1900 (8683-2099) /uL [place] # (Auto) 1900 H (0-900) /uL Eos # (Auto) 300 (0-450) /uL Baso # (Auto) 0 (0-100) /uL Sodium 134 L (137-145) mmol/L Potassium 2.9 L (3.4-5.1) mmol/L Chloride 99 (98-107) mmol/L Carbon Dioxide 24 (22-32) mmol/L BUN 15 (9-20) mg/dL Creatinine 0.90 (0.66-1.25) mg/dL Estimated GFR > 60.0 (>60) mL/min BUN/Creatinine Ratio 16.7 (6-22) Glucose 101 H (70-100) mg/dL Calcium 8.2 L (8.4-10.2) mg/dL Total Bilirubin 0.7 (0.2-1.3) mg/dL AST 31 (17-59) IU/L ALT 83 H (21-72) IU/L Alkaline Phosphatase 91 (38-126) U/L Total Protein 6.8 (6.3-8.2) g/dL Albumin 3.5 (3.5-5.0) g/dL Globulin 3.3 (1.7-4.1) g/dL Albumin/Globulin Ratio 1.1 (1.0-2.8) Discharge Plan Departure Patient Disposition: Home Clinical Impression: Diverticulitis, Abdominal pain Discharge Date/Time: 07/31/18 18:07 Interventions: ED Discharge Assessment Last Done: 07/31/18 18:06 Instructions: Diverticulitis, DI for Abdominal Pain-Adult Prescriptions: New tramadol [Ultram] 50 mg tablet 50 mg PO Q6H PRN (Reason: pain) Qty: 20 RF: 0 ondansetron 4 mg tablet,disintegrating 4 mg PO Q8-12H PRN (Reason: nausea and vomiting) Qty: 14 RF: 0 metronidazole [Flagyl] 500 mg tablet 500 mg PO QID 7 Days Qty: 28 RF: 0 No Action ondansetron HCl [Zofran] 4 mg tablet 4 mg PO Q6-8H PRN (Reason: nausea and vomiting) Qty: 7 RF: 0 tramadol [Ultram] 50 mg tablet 50 mg PO BEDTIME Qty: 7 RF: 0 Referrals: Fahad Sarah MD [Physician] - (follow up recommended in 2 days) <Adia Lind, DO - Last Filed: 08/01/18 10:47> Cosign ED Attending Cosignature Attestation: I was immediately available in the department for consultation. Documentation has been reviewed. I agree with assessment and plan.
[2018-07-31 14:59] LABS: Add Manual Diff / Slide Review NO; Basophils Absolute Auto 0 /uL (0-100); Basophils Percent Auto 0.3 % (0-2); Eosinophils Absolute Auto 300 /uL (0-450); Eosinophils Percent Auto 2.1 % (2-4); Hematocrit 45.9 % (41-53); Lymphocytes Absolute Auto 1900 /uL (1100-4500); Lymphocytes Percent Auto 14.7 % (25-40); Mean Corpuscular HGB Conc 34.8 % (30-36); Mean Corpuscular Hemoglobin 32.2 PG (26-34); Mean Corpuscular Volume 92.7 fL (80-100); Monocytes Absolute Auto 1900 /uL (0-900); Monocytes Percent Auto 15.1 % (3-14); Neutrophils Absolute Auto 8700 /uL (1500-7000); Neutrophils Percent Auto 67.8 % (50-75); Platelet Count 514 X10^3/uL (150-400); Red Blood Cell Count 4.95 X10^6/uL (4.5-5.9); Red Cell Distribution Width 13.3 % (11.6-14.8); White Blood Cell Count 12.8 X10^3/uL (4.5-11.0)
[2018-07-31] MEDS: KETOROLAC 60 MG/2 ML VIAL 30 MG IV (15:01)
[2018-07-31 15:07] LABS: Alanine Aminotransferase 83 IU/L (21-72); Albumin 3.5 g/dL (3.5-5.0); Albumin Globulin Ratio 1.1 (1.0-2.8); Alkaline Phosphatase 91 U/L (38-126); Aspartate Aminotransferase 31 IU/L (17-59); BUN Creatinine Ratio 16.7 (6-22); Bilirubin Total 0.7 mg/dL (0.2-1.3); Blood Urea Nitrogen 15 mg/dL (9-20); Calcium 8.2 mg/dL (8.4-10.2); Carbon Dioxide 24 mmol/L (22-32); Chloride 99 mmol/L (98-107); Estimated Glomerular Filt Rate > 60.0 mL/min (>60); Globulin 3.3 g/dL (1.7-4.1); Glucose 101 mg/dL (70-100); HEMOLYSIS < 15 (0-50); Potassium 2.9 mmol/L (3.4-5.1); Sodium 134 mmol/L (137-145); Total Protein 6.8 g/dL (6.3-8.2)
--- NOTE | 2018-07-31 15:12 | DI.CT.S_ITS ---
PROCEDURE: CT ABDOMEN PELVIS W CON INDICATIONS: abd pain TECHNIQUE: After the administration of intravenous contrast, 5 mm thick sections acquired from the diaphragm to the symphysis. 5 mm coronal and sagittal reformats were acquired. For radiation dose reduction, the following was used: automated exposure control, adjustment of mA and/or kV according to patient size. COMPARISON: [facility], CT, CT ABDOMEN PELVIS W CON, 07/22/2018, 11:03. FINDINGS: Image quality: Excellent. ABDOMEN: Lung bases: Lung bases are clear. Heart size is normal. Solid organs: Liver is normal in size and enhancement. Gallbladder is surgically absent. Biliary system is non dilated. Pancreas enhances normally. Spleen is normal in size and enhancement. No adrenal nodules. Kidneys demonstrate normal size and enhancement, without hydronephrosis. Peritoneum and bowel: Diverticulosis of the sigmoid colon. Moderate focal thickening involving the midsigmoid colon which demonstrates mild surrounding fat stranding. Appendix not seen. No evidence of appendicitis. Bowel loops demonstrate otherwise normal wall thickness and caliber. No free fluid or air. Nodes and vessels: No retroperitoneal or mesenteric adenopathy by size criteria. Multiple mildly prominent mesenteric lymph nodes are present. Aorta and inferior vena cava are normal in size. Miscellaneous: No ventral hernias. PELVIS: Genitourinary: Bladder wall thickness is normal. Miscellaneous: No inguinal hernias or adenopathy. Bones: No suspicious bony lesions. No vertebral body compression fractures. IMPRESSION: 1. Mild focal diverticulitis involving the sigmoid colon. No pericolonic abscess. Followup colonoscopy is recommended to ensure resolution. 2. Reactive mesenteric lymph node enlargement. Dictated by: Jada Peterson M.D. on 07/31/2018 at 15:57 Approved by: Jada Peterson M.D. on 07/31/2018 at 15:59
[2018-07-31] MEDS: ONDANSETRON 4 MG/2 ML INJ IV (16:19)
[2018-07-31] MEDS: metroNIDAZOLE 500 MG/100 ML PIGGYBACK 100 MG IV (16:19)
[2018-07-31] MEDS: HYDROCODONE/ACET 5/325 TABLET 1 TAB PO (16:19)
[2018-07-31] MEDS: TRAMADOL 50 MG PREPACK 1 BOTTLE MISC (18:04)
[2018-07-31 18:06] VITALS: BP 110/71; PULSE 80; RESP 18; O2SAT 99
== END 2018-07-31 18:07 | disposition home or self-care (01) ==
PROVIDERS: Emergency Provider Nurse Practitioner
DX: K57.92 Diverticulitis of intestine, part unspecified, without perforation or abscess without bleeding (principal); R10.9 Unspecified abdominal pain
CPT/HCPCS: 36415; 36591; 74177; 80053; 85025; 96365; 96366; 96375; 99283; 99284; J1885; J2405; Q9967

== ENCOUNTER → 2018-08-13 09:01 | Outpatient (CLI) | payer MEDICAID, OTHER, SELFPAY ==
[2018-08-13 09:41] LABS: Add Manual Diff / Slide Review NO; Basophils Absolute Auto 100 /uL (0-100); Basophils Percent Auto 1.2 % (0-2); Eosinophils Absolute Auto 500 /uL (0-450); Eosinophils Percent Auto 8.5 % (2-4); Hematocrit 45.1 % (41-53); Hemoglobin 15.5 g/dL (13.5-17.5); Lymphocytes Absolute Auto 1800 /uL (1100-4500); Lymphocytes Percent Auto 31.5 % (25-40); Mean Corpuscular HGB Conc 34.3 % (30-36); Mean Corpuscular Hemoglobin 32.6 PG (26-34); Mean Corpuscular Volume 94.9 fL (80-100); Monocytes Absolute Auto 600 /uL (0-900); Neutrophils Absolute Auto 2800 /uL (1500-7000); Neutrophils Percent Auto 47.8 % (50-75); Platelet Count 463 X10^3/uL (150-400); Red Blood Cell Count 4.75 X10^6/uL (4.5-5.9); Red Cell Distribution Width 13.2 % (11.6-14.8); White Blood Cell Count 5.8 X10^3/uL (4.5-11.0)
[2018-08-13 09:59] LABS: Alanine Aminotransferase 56 IU/L (21-72); Albumin 4.2 g/dL (3.5-5.0); Albumin Globulin Ratio 1.1 (1.0-2.8); Alkaline Phosphatase 82 U/L (38-126); Aspartate Aminotransferase 34 IU/L (17-59); Bilirubin Total 0.9 mg/dL (0.2-1.3); Blood Urea Nitrogen 9 mg/dL (9-20); Calcium 9.3 mg/dL (8.4-10.2); Carbon Dioxide 27 mmol/L (22-32); Chloride 104 mmol/L (98-107); Estimated Glomerular Filt Rate > 60.0 mL/min (>60); Globulin 3.7 g/dL (1.7-4.1); Glucose 110 mg/dL (70-100); HEMOLYSIS < 15 (0-50); Lipase 454 U/L (23-300); Sodium 140 mmol/L (137-145); Total Protein 7.9 g/dL (6.3-8.2)
[2018-08-13 11:34] LABS: C-Reactive Protein Quant < 0.5 mg/dL (<1.0)
== END ==
PROVIDERS: PCP Family Medicine; Visit Provider Family Medicine
DX: K57.92 Diverticulitis of intestine, part unspecified, without perforation or abscess without bleeding (principal)
CPT/HCPCS: 36415; 80053; 83690; 85025; 86140

== ENCOUNTER → 2018-08-19 14:59 | Outpatient (CLI) | payer MEDICAID, OTHER, SELFPAY ==
--- NOTE | 2018-08-19 15:03 | DI.CT.S_ITS ---
PROCEDURE: CT ABDOMEN PELVIS W CON INDICATIONS: DIVERTICULITIS/TACHYCARDIA TECHNIQUE: After the administration of oral and intravenous contrast, 5 mm thick sections acquired from the diaphragms to the symphysis. 5 mm thick coronal and sagittal reformats were performed. For radiation dose reduction, the following was used: automated exposure control, adjustment of mA and/or kV according to patient size. COMPARISON: [facility], CT, CT ABDOMEN PELVIS W CON, 07/31/2018, 15:35. FINDINGS: Image quality: Excellent. ABDOMEN: Lung bases: Lung bases are clear. Heart size is normal. Solid organs: Liver is normal in size and enhancement. Hepatic steatosis is again seen. Gallbladder is surgically absent. Biliary system is non-dilated. Pancreas enhances normally. Spleen is normal in size and enhancement. No adrenal nodules. Kidneys are normal in size and enhancement, without hydronephrosis. Peritoneum and bowel: Stomach, small bowel, and colon loops are normal in caliber and wall thickness. No free fluid or air. There is a small hiatal hernia. Mild sigmoid diverticulosis is seen. Previously noted inflammatory changes adjacent to proximal to mid sigmoid colon has resolved. No evidence of acute diverticulitis is seen on the current study. No abscess collection. The Nodes and vessels: No retroperitoneal or mesenteric adenopathy. Aorta and inferior vena cava are normal in caliber. Miscellaneous: No ventral hernias. PELVIS: Genitourinary: Bladder wall thickness is normal. Miscellaneous: No inguinal lymphadenopathy. Fat containing bilateral inguinal hernia is seen. Bones: No suspicious bony lesions. No vertebral body compression fractures. IMPRESSION: 1. Previously described inflammatory changes involving proximal to mid sigmoid colon is no longer present. No evidence of acute diverticulitis is seen on the current study. No abscess collection. 2. No bowel obstruction. No free fluid or free air. 3. Hepatic steatosis. Prior cholecystectomy. No gross abnormalities seen in the pancreas. Findings were reported to at 4:45 PM on 08/19/18. Dictated by: Gurmeet Zepeda M.D. on 08/19/2018 at 16:40 Approved by: Gurmeet Zepeda M.D. on 08/19/2018 at 16:47
== END ==
PROVIDERS: PCP Family Medicine; Visit Provider Family Medicine
DX: K57.92 Diverticulitis of intestine, part unspecified, without perforation or abscess without bleeding (principal); R00.0 Tachycardia, unspecified; K40.20 Bilateral inguinal hernia, without obstruction or gangrene, not specified as recurrent; K76.0 Fatty (change of) liver, not elsewhere classified; Z90.49 Acquired absence of other specified parts of digestive tract
CPT/HCPCS: 74177; Q9967

== ENCOUNTER 2019-03-13 12:12 | Emergency (ER) | payer MEDICAID, OTHER, SELFPAY ==
[2019-03-13 12:14] VITALS: BP 124/79; PULSE 83; RESP 16; TEMP 36.3; O2SAT 98; BMI 27.1
--- NOTE | 2019-03-13 12:16 | DI.RAD.S_ITS ---
PROCEDURE: XR WRIST RT MIN 3V INDICATIONS: injury TECHNIQUE: 4 views of the wrist were acquired. COMPARISON: None. FINDINGS: Bones: No fractures or dislocations. No suspicious bony lesions. Diffuse carpal degenerative sclerosis and spurring Scaphoid view: No fracture seen. Soft tissues: No suspicious soft tissue calcifications. IMPRESSION: No fracture. If the patient's symptoms do not improve recommend followup radiographs in 10 days to assess for healing sclerosis/occult injury. Dictated by: Clinton Madrigal M.D. on 03/13/2019 at 12:59 Approved by: Clinton Madrigal M.D. on 03/13/2019 at 13:03
--- NOTE | 2019-03-13 13:06 | ED_ITS ---
HPI - Extremity Injury (Upper) <Marquise NavarroRanjanaJarethfarhat [facility] - Last Filed: 03/13/19 13:28> General Chief Complaint: Extremity Injury, Upper Stated Complaint: fell two weeks ago, injured right wrist Time Seen by Provider: 03/13/19 12:58 Source: patient Mode of arrival: Ambulatory Limitations: no limitations History of Present Illness HPI narrative: This is a 54-year-old male, nonsmoker, who presents to ED with chief complain of right lateral wrist pain for last 3 weeks. Patient reports he had taken a fall after tripped and fell and hit his right wrist on a crab pot on a boat prior pain started. Patient has been using Aleve 600 mg twice a day but pain has not been improved. Patient continue to work since the injury and reports pain increases with supination and pronation motion. Patient also has been using Elliot wrap and tape which helped a little with movement. Patient denies tingling, numbness, weakness to affected limb. Related Data Home Medications Medication Instructions Recorded Confirmed albuterol sulfate [ProAir HFA] 2 puff INHALATION Q4-6H PRN 03/13/19 03/13/19 fluticasone propionate [Allergy 1 spray INTRANASAL 03/13/19 Relief (fluticasone)] Allergies Allergy/AdvReac Type Severity Reaction Status Date / Time No Known Drug Allergies Allergy Verified 03/13/19 12:14 Review of Systems <Marquise Cifuentsefarhat [facility] - Last Filed: 03/13/19 13:28> Review of Systems Narrative: General: Denies fever, chills, fatigue, malaise, sweats. HEENT: Denies sinus pain, ear pain, sore throat, difficulty swallowing, dizziness. Respiratory: Denies dyspnea, cough, wheezing, hemoptysis, sputum. Cardiovascular: Denies chest pain, palpitations, orthopnea, edema. Gastrointestinal: Denies nausea, vomiting, abdominal pain, diarrhea, constipation, melena. : Denies dysuria, frequency, incontinence, hematuria, urinary retention. Musculoskeletal: See HPI Skin: Denies rash, skin lesions, or other. Neurologic: Denies weakness, headache, numbness, change in speech, confusion, seizures, incoordination. Psychiatric: No concerning psychosocial issues. 12-point review of systems is negative except for those stated above. Patient History <Marquise MARCUS Coates - Last Filed: 03/13/19 13:28> Medical History Dyslipidemia (Chronic) Hypertension (Chronic) Surgical History History of tonsillectomy (Chronic) Hx of appendectomy (Chronic) Hx of cholecystectomy (Chronic) Social History marital status: Smoking Status: Never smoker alcohol intake: current substance use type: does not use Smoking Status: Never smoker alcohol intake frequency: a few times a week Substance Use Type: does not use Exam <MARCUS Alejandro - Last Filed: 03/13/19 13:28> Narrative Exam Narrative: General appearance: well developed, well nourished, in no acute distress. Head: normocephalic, atraumatic, no scalp lesions, non-tender. ENT: Bilateral auditory canals and tympanic membranes clear. Hearing grossly intact. Nose without bleeding, purulent discharge, septal hematoma or deviation. Turbinate without erythema or swelling. Facial sinuses nontender to palpate. Mucous membrane moist, no mucosal lesion. Throat without erythema, tonsillar hypertrophy or exudate. Uvula in midline, airway patent. Neck/Thyroid: neck supple, full range of motion, no visible masses or meningeal signs. No JVD, non-tender without lymphadenopathy. Skin: no suspicious rashes, lesions over visible areas. Warm and dry and appropriate color for ethnicity. Heart: no clubbing, no cyanosis, no edema. S1 and S2 normal. RRR w/o murmurs, clicks, or bruits. Lungs: Breathing even and unlabored. No stridor. No accessory muscles used. Able to speak in full sentences. Chest: normal shape and expansion. Abdomen: non-obese, non-distended. Neurologic: alert and oriented. Cognitive exam, [employer] and PNS grossly intact on informal exam. Psych: good eye contact, normal affect. Initial Vital Signs Initial Vital Signs: Vital Signs Temperature 97.4 F L 03/13/19 12:14 Pulse Rate 83 03/13/19 12:14 Respiratory Rate 16 03/13/19 12:14 Blood Pressure 124/79 03/13/19 12:14 Pulse Oximetry 98 03/13/19 12:14 Extrem Right upper extremity: shoulder/upper arm Details: normal to inspection; no tenderness, elbow/forearm Details: normal to inspection; no tenderness and no swelling, wrist Details: normal to inspection, tenderness Location: of the distal ulna, normal ROM, normal vascular exam and radial pulse present; no swelling, no unusual warmth and no ecchymosis and hand Details: normal to inspection, normal capillary refill, neuromotor exam normal, neurosensory exam normal, vascular exam Details: radial pulse present and normal ROM of fingers; no tenderness, no unusual warmth and no swelling <Adia Lind DO - Last Filed: 03/14/19 08:01> Initial Vital Signs Initial Vital Signs: Vital Signs Temperature 97.4 F L 03/13/19 12:14 Pulse Rate 83 03/13/19 12:14 Respiratory Rate 16 03/13/19 12:14 Blood Pressure 124/79 03/13/19 12:14 Pulse Oximetry 98 03/13/19 12:14 Procedures <MARCUS Alejandro - Last Filed: 03/13/19 13:28> Orthopedic Splinting/Casting Injury #1: Side: right Upper Extremity Injury Location: wrist Upper Extremity Immobilizer: thumb spica Post splinting neuro exam: intact Post splinting vascular exam: intact Placed by: Nursing Course <MARCUS Alejandro - Last Filed: 03/13/19 13:28> Orders Ordered: ED Orders 03/13/19 12:16 XR wrist RT min 3V Stat Vital Signs Vital signs: Vital Signs - 8 hr 03/13/19 12:14 Temperature 97.4 F L Pulse Rate 83 Respiratory Rate 16 Blood Pressure 124/79 Pulse Oximetry 98 <Adia Lind DO - Last Filed: 03/14/19 08:01> Orders Ordered: ED Orders 03/13/19 12:16 XR wrist RT min 3V Stat Vital Signs Vital signs: Vital Signs - 8 hr 03/13/19 12:14 Temperature 97.4 F L Pulse Rate 83 Respiratory Rate 16 Blood Pressure 124/79 Pulse Oximetry 98 MDM - Extremity Injury (Upper) <MARCUS Alejandro - Last Filed: 03/13/19 13:28> Differential Diagnosis Differential diagnosis: Likely sprain and strain of wrist and fracture of wrist Medical Records Attestation: I reviewed the patient's medical records. Imaging Data XR-Wrist RT: Radiologist's impression: [address] [address] XRay Report Signed Patient: Leonardo Kohli JMR#: [id number] : 1965Acct:[id number] Age/Sex: 54 / MDate of Service: 03/13/19 Loc: ED Accession Number: [id number] Procedure: XR wrist RT min 3V Ordering Provider: Adia Lind D.O. PROCEDURE: XR WRIST RT MIN 3V INDICATIONS: injury TECHNIQUE: 4 views of the wrist were acquired. COMPARISON: None. FINDINGS: Bones: No fractures or dislocations. No suspicious bony lesions. Diffuse carpal degenerative sclerosis and spurring Scaphoid view: No fracture seen. Soft tissues: No suspicious soft tissue calcifications. IMPRESSION: No fracture. If the patient's symptoms do not improve recommend followup radiographs in 10 days to assess for healing sclerosis/occult injury. Dictated by: Clinton Madrigal M.D. on 03/13/2019 at 12:59 Approved by: Clinton Madrigal M.D. on 03/13/2019 at 13:03 [facility] Narrative Medical decision making narrative: This is a 54-year-old gentleman who presents to ED with right lateral wrist pain after he had fall 3 weeks ago. Patient reports pain increases with supination and pronation and has been self treating with Elliot wrap and Aleve 600 mg b.i.d.. Patient denies tingling or numbness and neurovascular and motor exam is normal. X-ray test on right list without fracture or dislocation. Patient provided with right wrist splint for support and to prevent pronation and supination motion. Patient advised to take cbil-fja-ehvvkoi Tylenol 650-1000 mg 3 times a day as needed for pain. Add additional dose of Aleve up to 3 times a day as needed if pain is severe. Return precautions were discussed with patient and patient verbalized understanding and agrees with the treatment plan. Discharge Plan Departure Patient Disposition: Home Clinical Impression: Sprain and strain of wrist Discharge Date/Time: 03/13/19 13:54 Instructions: DI for Wrist Sprain Activity Restrictions/Additional Instructions: You have been diagnosed with [right lateral wrist sprain from falling 3 weeks ago. There is no fracture or dislocation was seen in x-ray test today. Please use wrist splint that was provided to you today to prevent excessive supination and pronation motion and for support.]. What to do: *Take your medications as directed. Please add Tylenol 600-1000 mg up to 3 times a day as needed for pain. Continue to take Aleve 2 to 3 times a day for pain. *Follow up with your primary care provider in 2-3 days, call for an appointment. Let them know you were seen in the ED and that we asked you to be seen in follow up. *Return to ED if you have any new, worsening, or concerning symptoms, such as [increasing pain, weakness to affected extremity, tingling/numbness to right hand, chest pain, breathing difficulty, or any acute concerns]. Prescriptions: No Action albuterol sulfate [ProAir HFA] 90 mcg/actuation HFA aerosol inhaler 2 puff INHALATION Q4-6H PRN (Reason: Shortness Of Breath) RF: 0 fluticasone propionate [Allergy Relief (fluticasone)] 50 mcg/actuation spray,suspension 1 spray INTRANASAL RF: 0 Referrals: Suyapa Ramos MD [Primary Care Provider] -
[2019-03-13 13:48] VITALS: PULSE 72
[2019-03-13 13:52] VITALS: BP 132/81; PULSE 72; RESP 16; O2SAT 97
== END 2019-03-13 13:54 | disposition home or self-care (01) ==
PROVIDERS: Emergency Provider Nurse Practitioner Family; PCP Family Medicine
DX: S63.501A Unspecified sprain of right wrist, initial encounter (principal); S66.911A Strain of unspecified muscle, fascia and tendon at wrist and hand level, right hand, initial encounter; W01.10XA Fall on same level from slipping, tripping and stumbling with subsequent striking against unspecified object, initial encounter
CPT/HCPCS: 29260; 73110; 99282; 99283

== ENCOUNTER → 2019-05-15 09:59 | Outpatient (CLI) | payer MEDICAID, OTHER, SELFPAY ==
--- NOTE | 2019-05-15 | DI.RAD.S_ITS ---
PROCEDURE: XR CHEST 2V INDICATIONS: Wheezing TECHNIQUE: 2 views of the chest were acquired. COMPARISON: [facility], , CHEST 2 VIEW, 04/12/2013, 12:58. FINDINGS: Surgical changes and devices: None. Lungs and pleura: Lungs are clear. No pleural effusions or pneumothorax. Mediastinum: Mediastinal contours are normal. Heart size is normal. Bones and chest wall: No suspicious bony abnormalities. Soft tissues appear unremarkable. IMPRESSION: No acute disease Dictated by: Clinton Madrigal M.D. on 05/15/2019 at 11:40 Approved by: Clinton Madrigal M.D. on 05/15/2019 at 11:41
[2019-05-15 11:17] LABS: Add Manual Diff / Slide Review NO; Basophils Absolute Auto 100 /uL (0-100); Basophils Percent Auto 0.6 % (0-2); Eosinophils Absolute Auto 100 /uL (0-450); Eosinophils Percent Auto 1.3 % (2-4); Hematocrit 43.5 % (41-53); Hemoglobin 14.9 g/dL (13.5-17.5); Lymphocytes Absolute Auto 1900 /uL (1100-4500); Lymphocytes Percent Auto 18.8 % (25-40); Mean Corpuscular HGB Conc 34.2 % (30-36); Mean Corpuscular Hemoglobin 32.6 PG (26-34); Mean Corpuscular Volume 95.4 fL (80-100); Monocytes Absolute Auto 900 /uL (0-900); Monocytes Percent Auto 8.7 % (3-14); Neutrophils Absolute Auto 7000 /uL (1500-7000); Neutrophils Percent Auto 70.6 % (50-75); Platelet Count 401 X10^3/uL (150-400); Red Blood Cell Count 4.56 X10^6/uL (4.5-5.9); Red Cell Distribution Width 13.2 % (11.6-14.8); White Blood Cell Count 9.9 X10^3/uL (4.5-11.0)
[2019-05-15 12:13] LABS: Alanine Aminotransferase 110 IU/L (<50); Albumin 4.2 g/dL (3.5-5.0); Albumin Globulin Ratio 1.2 (1.0-2.8); Alkaline Phosphatase 193 U/L (38-126); Aspartate Aminotransferase 48 IU/L (17-59); BUN Creatinine Ratio 12.2 (6-22); Bilirubin Total 0.7 mg/dL (0.2-1.3); Blood Urea Nitrogen 11 mg/dL (9-20); Carbon Dioxide 27 mmol/L (22-32); Chloride 104 mmol/L (98-107); Estimated Glomerular Filt Rate > 60.0 mL/min (>60); Globulin 3.4 g/dL (1.7-4.1); Glucose 101 mg/dL (70-100); HEMOLYSIS < 15 (0-50); Potassium 4.9 mmol/L (3.4-5.1); Sodium 142 mmol/L (137-145); Total Protein 7.6 g/dL (6.3-8.2)
== END ==
PROVIDERS: PCP Family Medicine; Referring Provider Physician Assistant; Visit Provider Physician Assistant
DX: R06.2 Wheezing (principal); R53.83 Other fatigue; J32.9 Chronic sinusitis, unspecified
CPT/HCPCS: 36415; 71046; 80053; 85025

== ENCOUNTER → 2020-08-02 11:27 | Outpatient (CLI) | payer MEDICAID, OTHER, SELFPAY ==
[2020-08-02 12:04] LABS: Add Manual Diff / Slide Review NO; Basophils Absolute Auto 0 /uL (0-100); Basophils Percent Auto 0.8 % (0-2); Eosinophils Absolute Auto 200 /uL (0-450); Eosinophils Percent Auto 2.5 % (2-4); Hematocrit 44.8 % (41-53); Lymphocytes Absolute Auto 2300 /uL (1100-4500); Lymphocytes Percent Auto 37.9 % (25-40); Mean Corpuscular HGB Conc 33.6 % (30-36); Mean Corpuscular Hemoglobin 31.4 PG (26-34); Mean Corpuscular Volume 93.4 fL (80-100); Monocytes Absolute Auto 500 /uL (0-900); Monocytes Percent Auto 8.6 % (3-14); Neutrophils Absolute Auto 3100 /uL (1500-7000); Neutrophils Percent Auto 50.2 % (50-75); Platelet Count 325 X10^3/uL (150-400); Red Cell Distribution Width 13.1 % (11.6-14.8); White Blood Cell Count 6.1 X10^3/uL (4.5-11.0)
[2020-08-02 12:27] LABS: Alanine Aminotransferase 34 IU/L (<50); Albumin 4.3 g/dL (3.5-5.0); Albumin Globulin Ratio 1.2 (1.0-2.8); Alkaline Phosphatase 83 U/L (38-126); Aspartate Aminotransferase 31 IU/L (17-59); BUN Creatinine Ratio 13.2 (6-22); Blood Urea Nitrogen 14 mg/dL (9-20); C-Reactive Protein Quant < 0.5 mg/dL (<1.0); Calcium 9.3 mg/dL (8.4-10.2); Carbon Dioxide 23 mmol/L (22-32); Chloride 107 mmol/L (98-107); Estimated Glomerular Filt Rate > 60.0 mL/min (>60); Globulin 3.5 g/dL (1.7-4.1); Glucose 104 mg/dL (70-100); HEMOLYSIS < 15 (0-50); Lipase 155 U/L (23-300); Potassium 4.3 mmol/L (3.4-5.1); Sodium 138 mmol/L (137-145); Total Protein 7.8 g/dL (6.3-8.2)
[2020-08-02 13:00] LABS: Ferritin 136 ng/mL (18-464)
[2020-08-05 13:53] LABS: H. Pylori Antigen Stool Negative (Negative)
== END ==
PROVIDERS: PCP Family Medicine; Referring Provider Internal Medicine; Visit Provider Internal Medicine
DX: R10.9 Unspecified abdominal pain (principal)
CPT/HCPCS: 80053; 82728; 83690; 85025; 86140; 87338

== ENCOUNTER → 2023-11-17 12:41 | Outpatient (CLI) | payer MEDICAID, OTHER, SELFPAY ==
--- NOTE | 2023-11-17 12:44 | DI.RAD.S_ITS ---
PROCEDURE: XR HIP W PEL IF DONE LT 2V COMPARISON: None. INDICATIONS: L HIP PAIN FINDINGS: No acute fracture or dislocation. [id number] arthritic changes noted with joint space narrowing and sclerosis along the acetabulum. Femoral head is intact. No lytic or blastic lesions. Soft tissues are unremarkable. 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 on 11/18/2023 at 13:03 Approved by: Paul Melendez M.D. on 11/18/2023 at 13:04
== END ==
PROVIDERS: PCP Family Medicine; Referring Provider Nurse Practitioner Family; Visit Provider Nurse Practitioner Family
DX: M16.12 Unilateral primary osteoarthritis, left hip (principal); M25.552 Pain in left hip
CPT/HCPCS: 73502

== ENCOUNTER → 2023-12-20 10:49 | Outpatient (CLI) | payer MEDICAID, OTHER, SELFPAY ==
--- NOTE | 2023-12-20 10:51 | DI.MRI.S_ITS ---
PROCEDURE: MR HIP LT WO CON INDICATIONS: LEFT HIP PAIN TECHNIQUE: Noncontrast coronal T1 spin echo and STIR through the bony pelvis. Coronal and axial T2 fast spin echo with fat saturation, sagittal T1 spin echo, and oblique axial T2 fast spin echo with fat saturation through the hip. COMPARISON: [facility], CR, XR HIP W PEL IF DONE LT 2V, 11/17/2023, 12:47. FINDINGS: Image quality: Excellent. Bones and joints: Marrow signal of the visualized lower lumbar spine is unremarkable. The sacrum is intact. Ankylosis versus bridging osteophyte of the superior left sacroiliac joint. Mild subchondral cystic changes of the right sacral myriam are about the right inferior sacroiliac joint, favoring degenerative. The right hip is well aligned. No acute fracture or dislocation of the right hip. The left hip is well aligned. No acute fracture or dislocation of the left hip. No avascular necrosis of either femoral head. Tendons and ligaments: The left iliopsoas, and adductor tendon are unremarkable. The left hamstring tendon is unremarkable. Mild tendinosis of the left gluteal minimus, at the greater trochanteric insertion. The left gluteal medius tendon is unremarkable. Labrum and cartilage: Near circumferential labral tear. There is a paralabral cyst extending from the anterior labral, to the anterior inferior labrum, measuring 1.1 cm on the largest axial dimension. Mild chondrosis of the left hip. Soft tissues: Unremarkable IMPRESSION: 1. Near circumferential labral tear of the left hip. 1.1 cm paralabral cyst. 2. Mild chondrosis of the left hip. 3. Mild tendinosis of the left gluteal minimus. Dictated by: Loly Sethi M.D. on 12/20/2023 at 14:15 Approved by: Loly Sethi M.D. on 12/20/2023 at 14:24
== END ==
PROVIDERS: PCP Family Medicine; Referring Provider Nurse Practitioner Family; Visit Provider Nurse Practitioner Family
DX: S73.192A Other sprain of left hip, initial encounter (principal); M25.552 Pain in left hip; M24.852 Other specific joint derangements of left hip, not elsewhere classified; M94.252 Chondromalacia, left hip
CPT/HCPCS: 73721

== ENCOUNTER 2023-12-29 17:04 | Emergency (ER) | payer MEDICAID, OTHER, SELFPAY ==
[2023-12-29 17:10] VITALS: BP 136/104; PULSE 89; RESP 16; TEMP 36.9; O2SAT 100; BMI 31.4
[2023-12-29 17:12] VITALS: BP 135/83
[2023-12-29] MEDS: KETOROLAC 30 MG/ML VIAL 15 MG IV (19:52)
--- NOTE | 2023-12-29 20:00 | ED_ITS ---
HPI - Extremity Problem General Chief complaint: Extremity Problem,Nontraumatic Stated complaint: gout x3 days getting worse Time Seen by Provider: 12/29/23 19:35 Source: patient Mode of arrival: Ambulatory History of Present Illness HPI Narrative: 58-year-old male presents with 3 days of progressively worsening right great toe pain. He was concerned that he may have gout. He states that he himself has never been officially diagnosed with gout but his father had it and it seems similar. Having difficulty walking due to pain. Related Data Home Medications Medication Instructions Recorded Confirmed albuterol sulfate 90 mcg/actuation 2 puff inhalation Q4-6H PRN 03/13/19 03/13/19 aerosol inhaler (ProAir HFA) Shortness Of Breath fluticasone propionate 50 1 spray intranasal 03/13/19 mcg/actuation nasal spray,suspension (Allergy Relief (fluticasone)) Previous Rx's Medication Instructions Recorded allopurinol 100 mg tablet 100 mg PO TID #21 tabs 12/29/23 Allergies Allergy/AdvReac Type Severity Reaction Status Date / Time No Known Drug Allergies Allergy Verified 12/29/23 17:12 Patient History Medical History Hypertension Dyslipidemia Surgical History Hx of appendectomy History of tonsillectomy Hx of cholecystectomy Social History marital status: Smoking Status: Never smoker alcohol intake: current substance use type: does not use Smoking Status: Never smoker alcohol intake frequency: a few times a week Substance Use Type: does not use Exam Initial Vital Signs Initial Vital Signs: Vital Signs Temperature 98.5 F 12/29/23 17:10 Pulse Rate 89 12/29/23 17:10 Respiratory Rate 16 12/29/23 17:10 Blood Pressure 136/104 H 12/29/23 17:10 Pulse Oximetry 100 12/29/23 17:10 Oxygen Delivery Method Room Air 12/29/23 17:10 Const: Awake, alert, no acute distress, nontoxic appearing MSK: Atraumatic, exquisite tenderness 1st metatarsal on right foot Skin: Warm, Dry, intact, no rashes Neuro: AO x3, CN II-XII grossly intact, moves all extremities Course Orders Ordered: ED Orders 12/29/23 19:57 CBC Auto Diff [Complete Blood Count AUTO DIFF] Stat CMP [Comprehensive Metabolic Panel] Stat Uric Acid Stat Discontinued Medications Colchicine (Colchicine 0.6 Mg Tablet) 1.2 mg PO NOW ONE Stop: 12/29/23 20:45 Last Admin: 12/29/23 21:09 Dose: 1.2 mg Documented By: SB Ketorolac Tromethamine (Ketorolac 30 Mg/Ml Vial) 15 mg IV NOW ONE Stop: 12/29/23 19:46 Last Admin: 12/29/23 19:52 Dose: 15 mg Documented By: AB Vital Signs Vital signs: Vital Signs - 8 hr 12/29/23 20:31 12/29/23 20:31 12/29/23 20:32 Pulse Rate 70 Respiratory Rate Blood Pressure 131/78 140/77 Pulse Oximetry 100 Oxygen Delivery Method 12/29/23 20:32 12/29/23 21:00 12/29/23 21:00 Pulse Rate 70 69 Respiratory Rate 16 Blood Pressure 112/73 Pulse Oximetry 99 98 Oxygen Delivery Method Room Air MDM - Extremity (Nontraumatic) Lab Data 12/29/23 19:57 12/29/23 19:57 Labs: Lab Results 12/29/23 Range/Units 19:57 WBC 10.6 (4.5-11.0) X10^3/uL RBC 4.63 (4.5-5.9) X10^6/uL Hgb 14.7 (13.5-17.5) g/dL Hct 43.2 (41-53) % MCV 93.3 (80-100) fL MCH 31.7 (26-34) PG MCHC 34.0 (30-36) % RDW 12.9 (11.6-14.8) % Plt Count 382 (150-400) X10^3/uL Neut % (Auto) 57.4 (50-75) % Lymph % (Auto) 30.5 (25-40) % [place] % (Auto) 9.0 (3-14) % Eos % (Auto) 2.5 (2-4) % Baso % (Auto) 0.6 (0-2) % Neut # (Auto) 6100 (9155-6106) /uL Lymph # (Auto) 3200 (8449-5731) /uL [place] # (Auto) 1000 H (0-900) /uL Eos # (Auto) 300 (0-450) /uL Baso # (Auto) 100 (0-100) /uL Sodium 136 L (137-145) mmol/L Potassium 4.2 (3.4-5.1) mmol/L Chloride 103 (98-107) mmol/L Carbon Dioxide 27 (22-32) mmol/L BUN 14 (9-20) mg/dL Creatinine 1.13 (0.66-1.25) mg/dL Estimated GFR > 60 (>60) mL/min BUN/Creatinine Ratio 12.4 (6-22) Glucose 100 (70-100) mg/dL Uric Acid 7.5 (3.5-8.5) mg/dL Calcium 9.4 (8.4-10.2) mg/dL Total Bilirubin 0.8 (0.2-1.3) mg/dL AST 32 (17-59) IU/L ALT 42 (<50) IU/L Alkaline Phosphatase 85 (38-126) U/L Total Protein 7.9 (6.3-8.2) g/dL Albumin 4.4 (3.5-5.0) g/dL Globulin 3.5 (1.7-4.1) g/dL Albumin/Globulin Ratio 1.3 (1.0-2.8) MDM Narrative Medical decision making narrative: Progressive right great toe pain that does appear to be consistent with gout. Labs reviewed. Discussed following a gout diet and initiation of allopurinol. PCP follow up advised. Discharge Plan Departure Patient Disposition: Home Clinical Impression: Gout Instructions: DI for Gout Activity Restrictions/Additional Instructions: Your exam today does appear to be consistent with gout. Take anti-inflammatories for pain. Modify your diet to decrease the change of repeat flares. Prescriptions: New allopurinol 100 mg tablet 100 mg PO TID Qty: 21 0RF No Action albuterol sulfate [ProAir HFA] 90 mcg/actuation HFA aerosol inhaler 2 puff INHALATION Q4-6H PRN (Reason: Shortness Of Breath) Patient Comments: INHALE TWO PUFFS BY MOUTH EVERY 4 TO 6 HOURS NEEDED fluticasone propionate [Allergy Relief (fluticasone)] 50 mcg/actuation spray,suspension 1 spray INTRANASAL Patient Comments: INSTILL 1 SPRAY IN EACH NOSTRIL ONCE A DAY Referrals: Joleen Swain MD [Physician] - Suyapa Ramos MD [Primary Care Provider] - Stand Alone Forms: Patient Portal/API
[2023-12-29 20:05] LABS: Add Manual Diff / Slide Review NO; Basophils Absolute Auto 100 /uL (0-100); Basophils Percent Auto 0.6 % (0-2); Eosinophils Absolute Auto 300 /uL (0-450); Eosinophils Percent Auto 2.5 % (2-4); Hematocrit 43.2 % (41-53); Hemoglobin 14.7 g/dL (13.5-17.5); Lymphocytes Absolute Auto 3200 /uL (1100-4500); Lymphocytes Percent Auto 30.5 % (25-40); Mean Corpuscular Hemoglobin 31.7 PG (26-34); Mean Corpuscular Volume 93.3 fL (80-100); Monocytes Absolute Auto 1000 /uL (0-900); Neutrophils Absolute Auto 6100 /uL (1500-7000); Neutrophils Percent Auto 57.4 % (50-75); Platelet Count 382 X10^3/uL (150-400); Red Blood Cell Count 4.63 X10^6/uL (4.5-5.9); Red Cell Distribution Width 12.9 % (11.6-14.8); White Blood Cell Count 10.6 X10^3/uL (4.5-11.0)
[2023-12-29 20:17] LABS: Alanine Aminotransferase 42 IU/L (<50); Albumin 4.4 g/dL (3.5-5.0); Albumin Globulin Ratio 1.3 (1.0-2.8); Alkaline Phosphatase 85 U/L (38-126); Aspartate Aminotransferase 32 IU/L (17-59); BUN Creatinine Ratio 12.4 (6-22); Bilirubin Total 0.8 mg/dL (0.2-1.3); Blood Urea Nitrogen 14 mg/dL (9-20); Calcium 9.4 mg/dL (8.4-10.2); Carbon Dioxide 27 mmol/L (22-32); Chloride 103 mmol/L (98-107); Estimated Glomerular Filt Rate > 60 mL/min (>60); Globulin 3.5 g/dL (1.7-4.1); Glucose 100 mg/dL (70-100); HEMOLYSIS < 15 (0-50); Potassium 4.2 mmol/L (3.4-5.1); Sodium 136 mmol/L (137-145); Total Protein 7.9 g/dL (6.3-8.2); Uric Acid 7.5 mg/dL (3.5-8.5)
[2023-12-29 20:31] VITALS: BP 131/78; PULSE 70; O2SAT 100
[2023-12-29 20:32] VITALS: BP 140/77; PULSE 70; O2SAT 99
[2023-12-29 21:00] VITALS: BP 112/73; PULSE 69; RESP 16; O2SAT 98
[2023-12-29] MEDS: COLCHICINE 0.6 MG TABLET 1.2 MG PO (21:09)
== END 2023-12-29 21:14 | disposition home or self-care (01) ==
PROVIDERS: Emergency Provider Emergency Medicine; PCP Family Medicine
DX: M10.9 Gout, unspecified (principal)
CPT/HCPCS: 36415; 80053; 84550; 85025; 96374; 99284; J1885